=== PATIENT | female | born 1975 | race Two or more races ===

== ENCOUNTER 2016-12-04 18:09 | Emergency (ER) | payer OTHER ==
[~2016-12-04] VITALS: Ht 162.6 cm; Wt 76.2 kg
[~2016-12-04 18:09] MED LIST: ALPR0.5T PO; B12 IM; BENADRYL PO; LEVO150T PO; vitamin d PO
[2016-12-04] MEDS ORDERED: IBUP-1481 PO (18:37)
[2016-12-04] MEDS ORDERED: CEFAZOLIN 1 G VIAL IM ONE (19:45)
[2016-12-04] MEDS ORDERED: CEFAZOLIN 1 G VIAL ONE (19:50)
[2016-12-04] MEDS ORDERED: LIDOCAINE HCL 1% 20 ML VIAL ONE (19:50)
--- NOTE | 2016-12-04 20:26 | NUR ---
Patient discharged to home in stable conditon. Written and verbal after care instructions given. Patient verbalizes understanding of instructions.
== END 2016-12-04 20:27 | disposition home or self-care (01) ==
LOC: ER 18:14
DX: K08.89 Other specified disorders of teeth and supporting structures (principal); R51 Headache; I10 Essential (primary) hypertension; K21.9 Gastro-esophageal reflux disease without esophagitis; F41.9 Anxiety disorder, unspecified; K58.9 Irritable bowel syndrome, unspecified; Z88.2 Allergy status to sulfonamides; Z88.8 Allergy status to other drugs, medicaments and biological substances
CPT/HCPCS: 70450; 70486; 96372; 99284; A4663; J0690; J3490

== ENCOUNTER 2017-07-04 19:36 | Emergency (ER) | payer OTHER ==
[~2017-07-04] VITALS: Ht 162.6 cm; Wt 59.9 kg
[~2017-07-04 19:36] MED LIST changes: +IBUP-1954 PO
--- NOTE | 2017-07-04 21:00 | NUR ---
PT PRESENTS W/ COMPLAINTS OF N/V, NECK PAIN, AND BLOODY STOOL X 3DAYS. A&OX4
[2017-07-04] MEDS ORDERED: MECLIZINE HCL 25 MG TABLET PO ONE (21:45)
[2017-07-04 22:03] LABS: BASOPHILS # (AUTO) 0.1 K/uL (0.0-8.0); BASOPHILS % (AUTO) 1.2 % (0.0-2.0); EOSINOPHILS # (AUTO) 0.1 K/uL (0.0-0.7); EOSINOPHILS % (AUTO) 1.2 % (0.0-7.0); HEMATOCRIT 38.9 % (31.2-41.9); HEMOGLOBIN 13.5 g/dL (10.9-14.3); LYMPHOCYTES # (AUTO) 3.6 K/uL (20.0-40.0); LYMPHOCYTES % (AUTO) 33.9 % (20.5-51.5); MEAN CORPUSCULAR HEMOGLOBIN 30.5 uug (24.7-32.8); MEAN CORPUSCULAR HGB CONC 35 g/dL (32.3-35.6); MEAN CORPUSCULAR VOLUME 87.8 fL (75.5-95.3); MONOCYTES # (AUTO) 0.6 K/uL (2.0-10.0); MONOCYTES % (AUTO) 5.8 % (0.0-11.0); NEUTROPHILS # (AUTO) 6.1 K/uL (1.8-8.9); NEUTROPHILS % (AUTO) 57.9 % (38.5-71.5); PLATELET COUNT (AUTO) 278 K/uL (179-408); RED BLOOD CELL COUNT(AUTO) 4.43 MIL/uL (3.63-4.92); WHITE BLOOD COUNT (AUTO) 10.6 K/uL (3.8-11.8)
[2017-07-04] MEDS ORDERED: MECLIZINE HCL 25 MG TABLET ONE (22:07)
[2017-07-04 22:08] LABS: POTASSIUM 3.7 mmol/L (3.5-5.1)
[2017-07-04 22:14] LABS: BILIRUBIN,DIRECT 0.1 mg/dL (0.0-0.2); BILIRUBIN,TOTAL 0.3 mg/dL (0.2-1.0); TOTAL PROTEIN, SERUM 7.5 g/dL (6.4-8.2)
[2017-07-04] MEDS ORDERED: DEXAMETHASONE SOD PHOSPHATE 4 MG INJ MC ONE (23:30)
[2017-07-04] MEDS ORDERED: DEXAMETHASONE SOD PHOSPHATE 4 MG INJ ONE (23:55)
[2017-07-04] MEDS ORDERED: DEXAMETHASONE SOD PHOSPHATE 10 MG INJ ONE (23:55)
--- NOTE | 2017-07-04 23:58 | NUR ---
Pt stable for discharge per MD. Pt given ACI. Pt verbalized understanding of dc instructions. Pt ambulated out of ER with steady gait.
[2017-07-05 00:04] VITALS: BP 154/77
== END 2017-07-05 00:05 | disposition home or self-care (01) ==
LOC: ER 19:38
DX: F41.9 Anxiety disorder, unspecified (principal); R51 Headache; R07.9 Chest pain, unspecified; R20.2 Paresthesia of skin; R42 Dizziness and giddiness; R06.00 Dyspnea, unspecified; I10 Essential (primary) hypertension; K21.9 Gastro-esophageal reflux disease without esophagitis; K58.9 Irritable bowel syndrome, unspecified; Z88.2 Allergy status to sulfonamides; Z98.84 Bariatric surgery status; Z90.49 Acquired absence of other specified parts of digestive tract; F17.200 Nicotine dependence, unspecified, uncomplicated
CPT/HCPCS: 36415; 71045; 80048; 80076; 85025; 85651; 93005; 99285; A4663; J1100 ×2; J8597

== ENCOUNTER 2018-08-09 19:39 | Emergency (ER) | payer BC, OTHER ==
[~2018-08-09] VITALS: Ht 167.6 cm; Wt 61.2 kg
[~2018-08-09 19:39] MED LIST changes: -B12 IM; -BENADRYL PO; -vitamin d PO
[2018-08-09] MEDS ORDERED: predniSONE 50 MG TABLET ONE (20:25)
[2018-08-09] MEDS ORDERED: predniSONE 10 MG TABLET ONE (20:25)
[2018-08-09] MEDS ORDERED: IBUPROFEN 400 MG TABLET ONE (20:25)
--- NOTE | 2018-08-09 20:29 | NUR ---
Patient discharged to home in stable conditon. Written and verbal after care instructions given. Patient verbalizes understanding of instructions.
[2018-08-09] MEDS ORDERED: predniSONE 20 MG TABLET PO ONE (20:30)
[2018-08-09] MEDS ORDERED: IBUPROFEN 400 MG TABLET PO ONE (20:30)
== END 2018-08-09 20:31 | disposition home or self-care (01) ==
LOC: ER 19:40
DX: J32.9 Chronic sinusitis, unspecified (principal); J02.8 Acute pharyngitis due to other specified organisms; B97.89 Other viral agents as the cause of diseases classified elsewhere; H65.93 Unspecified nonsuppurative otitis media, bilateral; I10 Essential (primary) hypertension; K21.9 Gastro-esophageal reflux disease without esophagitis; F17.200 Nicotine dependence, unspecified, uncomplicated; Z88.2 Allergy status to sulfonamides; Z88.8 Allergy status to other drugs, medicaments and biological substances; Z79.1 Long term (current) use of non-steroidal anti-inflammatories (NSAID); Z79.899 Other long term (current) drug therapy
CPT/HCPCS: 99283; J7512 ×2; A4663

== ENCOUNTER 2022-09-01 00:02 | Emergency (ER) | payer SELFPAY ==
[~2022-09-01] VITALS: Ht 170.2 cm; Wt 65.8 kg
--- NOTE | 2022-09-01 00:30 | NUR ---
Assisted/chaporoned Dr. Hyman at bedside.
[2022-09-01] MEDS ORDERED: ONDANSETRON ODT 4 MG TAB.RAPDIS ONE (00:49)
[2022-09-01] MEDS ORDERED: IV NORMAL SALINE 1000 ML BAG IV ONE (01:00)
--- NOTE | 2022-09-01 01:10 | NUR ---
Assisted patient to the restroom. Unsteady gait at this time.
[2022-09-01] MEDS ORDERED: ONDANSETRON ODT 4 MG TAB.RAPDIS SL ONE (01:15)
[2022-09-01 01:19] LABS: HEMATOCRIT 39.3 % (31.2-41.9); MEAN CORPUSCULAR HEMOGLOBIN 25.4 uug (24.7-32.8); PLATELET COUNT (AUTO) 317 K/uL (179-408)
[2022-09-01 01:32] LABS: BILIRUBIN,DIRECT 0.1 mg/dL (0.0-0.2); BILIRUBIN,TOTAL 0.5 mg/dL (0.2-1.0); CREATININE 0.8 mg/dL (0.6-1.3); POTASSIUM 2.9 mmol/L (3.5-5.1); TOTAL PROTEIN, SERUM 7.5 g/dL (6.4-8.2)
--- NOTE | 2022-09-01 02:05 | NUR ---
Patient sleeping. NAD noted.
--- NOTE | 2022-09-01 05:45 | NUR ---
Mother at bedside.
[2022-09-01] MEDS ORDERED: ONDANSETRON 4 MG/2 ML VIAL ONE (05:53)
[2022-09-01] MEDS ORDERED: ONDANSETRON 4 MG/2 ML VIAL IV ONE (06:00)
--- NOTE | 2022-09-01 07:18 | NUR ---
Attempted to give patient cranberry juice per Dr. Hyman's request. Patient is unable to drink juice, started coughing.
[2022-09-01] MEDS ORDERED: PROCHLORPERAZINE EDISYLATE 10 MG/2 ML VIAL IV ONE (07:30)
--- NOTE | 2022-09-01 07:30 | NUR ---
Report given to SIMONA Killian.
[2022-09-01] MEDS ORDERED: POTASSIUM CHLORIDE 50 ML ONE ×2 (07:32→08:46)
[2022-09-01] MEDS ORDERED: PROCHLORPERAZINE EDISYLATE 10 MG/2 ML VIAL ONE (07:33)
--- NOTE | 2022-09-01 07:33 | NUR ---
O And M Supervisor assumes care: 1st contact with patient: Patient is resting comfortably on gurney with eyes closed, moving all extremities,+ hard neck collar on, respiration:easy, even, non-labored and symmetrical. Her skin is warm and dry. Mother at bedside. ER observation maintained for soberiety per MD's order.
[2022-09-01] MEDS: POTASSIUM CHLORIDE 50 ML IV SCH ×2 (07:45→08:45)
--- NOTE | 2022-09-01 08:39 | NUR ---
Extra warm blankets provided. Patient's mother is at the bedside. IV fluids infusing well. Patient is resting comfortably on gurney with eyes closed, easily arousable, respiration:easy, NAD.
[2022-09-01] MEDS ORDERED: POTASSIUM CHLORIDE 20 MEQ TAB.PRT.SR ONE (10:49)
[2022-09-01] MEDS ORDERED: POTASSIUM CHLORIDE 20 MEQ TAB.PRT.SR PO ONE (11:00)
--- NOTE | 2022-09-01 11:01 | NUR ---
Patient ambulated to bathroom to void with slow steady gait.
--- NOTE | 2022-09-01 11:04 | NUR ---
Patient discharged to home with mother in stable condition and slow steady gait. Written and verbal after care instructions given to patient and family. Patient and family verbalized understanding and compliance of instructions. Stressed follow up with primary doctor or return to ER for worsening s/s.
== END 2022-09-01 11:14 | disposition home or self-care (01) ==
LOC: ER 00:02
DX: G93.41 Metabolic encephalopathy (principal); F10.129 Alcohol abuse with intoxication, unspecified; Y90.7 Blood alcohol level of 200-239 mg/100 ml; M50.322 Other cervical disc degeneration at C5-C6 level; M48.02 Spinal stenosis, cervical region; E87.6 Hypokalemia; S00.03XA Contusion of scalp, initial encounter; W19.XXXA Unspecified fall, initial encounter; Y92.511 Restaurant or cafe as the place of occurrence of the external cause; I10 Essential (primary) hypertension; Z98.84 Bariatric surgery status; F41.9 Anxiety disorder, unspecified; Z79.899 Other long term (current) drug therapy; R11.0 Nausea; Z88.2 Allergy status to sulfonamides; Z88.8 Allergy status to other drugs, medicaments and biological substances; K58.9 Irritable bowel syndrome, unspecified
CPT/HCPCS: 80076; 80048; 82962; 85025; 84702; 36415; 70450; 72125; 99285; 96361; 96365; 96366; 96375; 80320; J2405; J3480 ×2; J0780; J7040 ×2; A4663; G0480; Q0162